=== PATIENT | male | born 1985 | race African-American/Black ===

== ENCOUNTER 2021-11-11 18:42 | Emergency (ER) | payer OTHER ==
[2021-11-11 19:30] LABS: AMPHETAMINES POSITIVE (NEGATIVE); BARBITURATES NEGATIVE (NEGATIVE); ECSTASY (MDMA) NEGATIVE (NEGATIVE); MARIJUANA (THC) NEGATIVE (NEGATIVE); METHADONE NEGATIVE (NEGATIVE); OPIATES NEGATIVE (NEGATIVE); OXYCODONE NEGATIVE (NEGATIVE)
[2021-11-11 19:40] LABS: BASOPHIL 0.7 % (0-2); EOSINOPHIL 1.1 % (0-5); HGB 15.3 g/dl (13.2-18.0); LYMPHOCYTE 21.2 % (15-48); MCH 30.8 pg (25.0-31.0); MCV 90.5 fL (78.0-100.0); MPV 9.2 fL (6.0-9.5); NEUTROPHIL 70.6 % (41-80); NRBC 0; PLT 201 K/uL (150-400); RBC 4.97 M/uL (4.70-6.00); RDW 14.9 % (11.5-14.0); WBC 8.2 K/uL (4.0-10.5)
[2021-11-11 20:06] LABS: ALBUMIN 3.9 g/dL (3.4-5.0); BILIRUBIN - TOTAL 0.5 mg/dL (0.2-1.0); BUN/CREAT RATIO (CALC) 13.2 RATIO; CREATININE 0.68 mg/dL (0.67-1.17); GLOBULIN (CALCULATION) 4.2 g/dL; POTASSIUM 3.4 mmol/L (3.5-5.1); TOTAL PROTEIN 8.1 g/dL (6.4-8.2)
== END 2021-11-11 20:27 | disposition home or self-care (01) ==
LOC: FER 18:42
PROVIDERS: Emergency Medicine
DX: R55 Syncope and collapse (principal); F17.200 Nicotine dependence, unspecified, uncomplicated
CPT/HCPCS: 36415; 70450; 71045; 80053; 80305; 84484; 85025; 93005; J1885; J2405; J7030